=== PATIENT | female | born 1965 | race Caucasian/White ===

== ENCOUNTER 2018-12-22 06:24 | Day surgery (SDC) | payer OTHER ==
[~2018-12-22 06:24] MED LIST: Buffered Lidocaine 1% SYRIN* 1 ML/SYRINGE INTRADERM ONE; Dexamethasone TAB* 4 MG PO ONE; DiMENhydriNATE IV* 50 MG/ML VIAL IV PUSH PRN; Famotidine IV* 10 MG/ML 2 ML (20 mg) IV ONE; HYDROmorphone INJ1* 1 MG/ML SYRINGE IV PRN; Lactated Ringers 1000 ML Bag* 1,000 ML IV SCH; Naloxone* 0.4 MG/ML 1 ML VIAL IV PRN; Ondansetron TAB* 4 MG PO ONE; PROCHLORPERAZINE INJ 5 MG/ML 2 ML VIAL IV PRN; Scopolamine 1.5 mg* PATCH TRANSDERM PRN; fentaNYL* 50 MCG/ML 2 ML VIAL (100 MCG VIAL) IV PRN; oxyCODONE/Acetamin 5/325 MG* TAB PO PRN
[2018-12-22] MEDS ORDERED: Ondansetron ODT TAB* 4 MG ONE (06:58)
[2018-12-22] MEDS ORDERED: Dexamethasone TAB* 4 MG ONE (06:58)
[2018-12-22] MEDS ORDERED: ceFAZolin 2 GM PREMIX in ORs 2 GM/50 ML BAG IVPB ONE (06:58)
[2018-12-22] MEDS ORDERED: Buffered Lidocaine 1% SYRIN* 1 ML/SYRINGE INTRADERM ONE (06:59)
[2018-12-22] MEDS ORDERED: Famotidine IV* 10 MG/ML 2 ML (20 mg) ONE (06:59)
[2018-12-22] MEDS ORDERED: Bupivacaine 0.5%* 50 ML VIAL ONE (07:08)
[2018-12-22] MEDS ORDERED: fentaNYL* 50 MCG/ML 2 ML VIAL (100 MCG VIAL) ONE (07:46)
[2018-12-22] MEDS ORDERED: Midazolam* 1 MG/ML 5 ML VIAL (5 MG) ONE (07:46)
[2018-12-22] MEDS ORDERED: KETAMINE HCL* 50 MG/ML 10 ML VIAL ONE (07:46)
[2018-12-22] MEDS ORDERED: ceFAZolin 1 GM ADVAN(*) 1 GM ADDV.VIAL IVPB ONE (08:22)
[2018-12-22] MEDS ORDERED: Propofol* 500 MG/50 ML BTL ONE (09:14)
[2018-12-22] MEDS ORDERED: Propofol* 10 MG/ML 20 ML BTL ONE (09:14)
[2018-12-22] MEDS ORDERED: Ketorolac INJ* 30 MG/ML 1 ML VIAL ONE (09:14)
[2018-12-22] MEDS ORDERED: Lidocaine 0.5%* 50 ML SDV ONE (09:15)
[2018-12-22 10:50] VITALS: BP 121/67
--- NOTE | 2018-12-22 11:01 | OP ---
DATE OF OPERATION: 12/22/18 - [facility] DATE OF : 61 SURGEON: Nina Truong MD. MISCELLANEOUS MACHINE OPERATOR: PHILIP Peralta. ANESTHESIA: IV regional. PRE-OP DIAGNOSIS: Left thumb carpometacarpal arthritis. POST-OP DIAGNOSIS: Left thumb carpometacarpal arthritis. OPERATIVE PROCEDURE: Left thumb carpometacarpal arthroplasty. ESTIMATED BLOOD LOSS: Zero. TOURNIQUET TIME: Approximately 45 minutes. INDICATION FOR PROCEDURE: Modesta is a 53-year-old woman who has painful arthritis at the base of her left thumb. She has failed conservative treatment and presents for left thumb CMC arthroplasty. DESCRIPTION OF PROCEDURE: The patient was brought to the operating room, was given a IV regional anesthetic and a sedation anesthetic with a tourniquet around her left upper arm. Skin of her left upper extremity was prepped and draped in the usual sterile fashion. A curvilinear incision was made, centered at the base of the thumb CMC joint. We injected 10 cc of 0.5% plain Marcaine. Dissected through the subcutaneous tissue and branches of the radial sensory nerve was located and then retracted by the surgical services coordinator, Marizol Ruano, whose assistance was necessary for safe completion of the procedure. The APL and EPB tendons were retracted and then the radial artery was dissected off of the CMC joint capsule and retracted also by the surgical services coordinator, Marizol Ruano. A distally based U-shape flap was created at the thumb CMC joint and we dissected down on to the trapezium. The trapezium was removed in its entirety and sent for pathology. The CMC joint capsule was then secured to the FCR tendon in the base of the wound and this placed the thumb MP joint in a very nice position. The wound was irrigated. The remainder of the joint capsule was closed with 4-0 nylon. The skin edges were then reapproximated with 4-0 nylon suture and the wound was dressed with Xeroform, 4x4, Webril, and a thumb spica splint. The patient tolerated the procedure well and was brought to the recovery room in good condition. [id number] #: [id number] MTDD
[2018-12-25] MEDS ORDERED: Scopolamine PATCH Remove* 1 NOTE MISC PATCH OFF ONE (05:53)
== END 2018-12-22 10:50 | disposition home or self-care (01) ==
LOC: OR 06:24
PROVIDERS: ATTEND Orthopaedic Surgery
DX: M18.0 Bilateral primary osteoarthritis of first carpometacarpal joints (principal); Z72.0 Tobacco use; I10 Essential (primary) hypertension; E03.9 Hypothyroidism, unspecified; K21.9 Gastro-esophageal reflux disease without esophagitis
CPT/HCPCS: 88304; 88311; A9270-GY; J0690; J1885; J2250; J2704; J3010; J3490; J8540